=== PATIENT | female | born 1970 | race Caucasian/White ===

== ENCOUNTER 2024-07-20 03:07 | Emergency (ER) | payer OTHER ==
[2024-07-20 03:14] VITALS: PULSE 90; RESP 16; O2SAT 98
== END 2024-07-20 03:30 | disposition left against medical advice (07) ==
LOC: ER 03:07
DX: R07.89 Other chest pain (principal); Z53.21 Procedure and treatment not carried out due to patient leaving prior to being seen by health care provider